=== PATIENT | female | born 1995 | race American Indian/Alaskan Native ===

== ENCOUNTER 2017-09-20 14:40 | Emergency (ER) | payer OTHER ==
[2017-09-20 14:52] VITALS: BP 122/65
[2017-09-20 15:19] LABS: Bilirubin,Urine NEG (Negative); Blood,Urine NEG (Negative); Color,Urine Yellow (Yellow); Mucus,Urine FEW /HPF; Urobilinogen,Urine < 2.0 mg/dL (<2.0)
[2017-09-20 15:24] LABS: HCG Qualitative,Urine Positive (Negative)
[2017-09-20] MEDS ORDERED: ZOFRAN ODT PO ONE (15:59)
--- NOTE | 2017-09-20 16:01 | Emergency Department Report ---
ED General Adult HPI - General Chief complaint: Nausea/Vomiting/Diarrhea Stated complaint: NAUSEA AND FATIGUE Time Seen by Provider: 09/20/17 15:54 Source: patient Mode of arrival: Ambulatory Limitations: No Limitations - History of Present Illness Initial comments: Patient is a 22-year-old female no significant past medical history presents with nausea and vomiting has been going on for the last week. Patient states that early in the morning she gets nauseous she has been having some dry heaving her vomit is nonbloody nonbilious she denies having any abdominal pain dysuria or any vaginal discharge patient is sexually active. Nothing makes her symptoms better and nothing makes it worse. Patient is employed and is on nonsmoker - Related Data Previous Rx's Medication Instructions Recorded Last Taken Type Doxylamine Succinate [Unisom] 25 mg PO Q6H PRN #30 tablet 09/20/17 Unknown Rx 21/Iron Fu/Folic Acid 1 each PO QDAY #60 tablet 09/20/17 Unknown Rx [ Complete Caplet] Pyridoxine HCl (Vitamin B6) 25 mg PO Q6H PRN #30 tablet 09/20/17 Unknown Rx [Vitamin B-6] Allergies Allergy/AdvReac Type Severity Reaction Status Date / Time No Known Allergies Allergy Unverified 09/20/17 14:52 ED Review of Systems ROS: Stated complaint: NAUSEA AND FATIGUE Other details as noted in HPI Constitutional: denies: chills, fever Eyes: denies: eye pain, eye discharge, vision change ENT: denies: ear pain, throat pain Respiratory: denies: cough, shortness of breath, wheezing Cardiovascular: denies: chest pain, palpitations Endocrine: no symptoms reported Gastrointestinal: nausea, vomiting. denies: abdominal pain, diarrhea Genitourinary: denies: urgency, dysuria, discharge Musculoskeletal: denies: back pain, joint swelling, arthralgia Skin: denies: rash, lesions Neurological: denies: headache, weakness, paresthesias Psychiatric: denies: anxiety, depression Hematological/Lymphatic: denies: easy bleeding, easy bruising ED Past Medical Hx - Past Medical History Previous Medical History?: No - Surgical History Past Surgical History?: No - Social History Smoking Status: Never Smoker Substance Use Type: None - Medications Home Medications: Home Medications Medication Instructions Recorded Confirmed Last Taken Type Doxylamine Succinate [Unisom] 25 mg PO Q6H PRN #30 tablet 09/20/17 Unknown Rx 21/Iron Fu/Folic Acid 1 each PO QDAY #60 tablet 09/20/17 Unknown Rx [ Complete Caplet] Pyridoxine HCl (Vitamin B6) 25 mg PO Q6H PRN #30 tablet 09/20/17 Unknown Rx [Vitamin B-6] ED Physical Exam - General Limitations: No Limitations General appearance: alert, in no apparent distress - Head Head exam: Present: atraumatic, normocephalic - Eye Eye exam: Present: normal appearance - ENT ENT exam: Present: mucous membranes moist - Neck Neck exam: Present: normal inspection - Respiratory Respiratory exam: Present: normal lung sounds bilaterally. Absent: respiratory distress - Cardiovascular Cardiovascular Exam: Present: regular rate, normal rhythm. Absent: systolic murmur, diastolic murmur, rubs, gallop - GI/Abdominal GI/Abdominal exam: Present: soft, normal bowel sounds - Extremities Exam Extremities exam: Present: normal inspection - Back Exam Back exam: Present: normal inspection - Neurological Exam Neurological exam: Present: alert, oriented X3 - Psychiatric Psychiatric exam: Present: normal affect, normal mood - Skin Skin exam: Present: warm, dry, intact, normal color. Absent: rash ED Course Vital Signs 09/20/17 14:49 Temperature 98.6 F Pulse Rate 65 Respiratory 16 Rate Blood Pressure 122/65 O2 Sat by Pulse 100 Oximetry ED Medical Decision Making - Lab Data Lab Results 09/20/17 Range/Units 14:58 Urine Color Yellow (Yellow) Urine Turbidity Clear (Clear) Urine pH 5.0 (5.0-7.0) Ur Specific [place] 1.012 (1.003-1.030) Urine Protein 30 mg/dl (Negative) mg/dL Urine Glucose (UA) Neg (Negative) mg/dL Urine Ketones Neg (Negative) mg/dL Urine Blood Neg (Negative) Urine Nitrite Neg (Negative) Urine Bilirubin Neg (Negative) Urine Urobilinogen < 2.0 (<2.0) mg/dL Ur Leukocyte Esterase Neg (Negative) Urine WBC (Auto) 3.0 (0.0-6.0) /HPF Urine RBC (Auto) 3.0 (0.0-6.0) /HPF U Epithel Cells (Auto) 8.0 (0-13.0) /HPF Urine Mucus Few /HPF Urine HCG, Qual Positive A (Negative) - Medical Decision Making Chief medical diagnosis: Nausea and vomiting secondary to Differential medical diagnosis: UTI, gastrits I will give patient oral antiemetic and I will K urine test and urinalysis. Discussed plan with patient patient agrees with plan additional verbal discharge instructions were given. Critical care attestation.: If time is entered above; I have spent that time in minutes in the direct care of this critically ill patient, excluding procedure time. ED Disposition Clinical Impression: Qualifiers: Weeks of gestation: less than 8 weeks Qualified Code(s): Z3A.01 - Less than 8 weeks gestation of Nausea and vomiting Qualifiers: Vomiting type: unspecified Vomiting Intractability: unspecified Qualified Code( s): R11.2 - Nausea with vomiting, unspecified Disposition: TO HOME OR SELFCARE Is pt being admited?: No Does the pt Need Aspirin: No Condition: Stable Instructions: (ED), Acute Nausea and Vomiting (ED) Prescriptions: Doxylamine Succinate [Unisom] 25 mg PO Q6H PRN #30 tablet PRN Reason: Nausea 21/Iron Fu/Folic Acid [ Complete Caplet] 1 each PO QDAY #60 tablet Pyridoxine HCl (Vitamin B6) [Vitamin B-6] 25 mg PO Q6H PRN #30 tablet PRN Reason: Nausea Referrals: YUNIOR COHEN MD [Staff Physician] - 3-5 Days
== END 2017-09-20 16:32 | disposition home or self-care (01) ==
LOC: ED 14:40
DX: O21.9 Vomiting of pregnancy, unspecified (principal); O26.891 Other specified pregnancy related conditions, first trimester; R11.0 Nausea; Z3A.01 Less than 8 weeks gestation of pregnancy
CPT/HCPCS: 81001; 81025; 99283; Q0162